=== PATIENT | female | born 1985 | race Caucasian/White ===

== ENCOUNTER → 2017-03-13 15:05 | Outpatient (CLI) | payer BC, SELFPAY ==
[2017-03-13 18:30] LABS: Progesterone Level 16.75 ng/mL (See Comment)
== END ==
PROVIDERS: Visit Provider Obstetrics & Gynecology
DX: N97.0 Female infertility associated with anovulation (principal); N92.5 Other specified irregular menstruation
CPT/HCPCS: 36415; 84144

== ENCOUNTER → 2017-04-10 15:10 | Outpatient (CLI) | payer BC, SELFPAY ==
[2017-04-10 16:31] LABS: Progesterone Level 16.13 ng/mL (See Comment)
== END ==
PROVIDERS: Visit Provider Obstetrics & Gynecology
DX: N97.0 Female infertility associated with anovulation (principal)
CPT/HCPCS: 36415; 84144

== ENCOUNTER → 2017-05-15 16:14 | Outpatient (CLI) | payer BC, SELFPAY ==
[2017-05-15 21:58] LABS: Chlamydia Trachomatis by PCR Negative (Negative); Neisserai gonorrhoeae by PCR Negative (Negative); Probe Check PASS; Sample Adequacy Control PASS; Specimen Processing Control PASS
[2017-05-20 13:10] LABS: HPV Reflexed? NOT INDICATED
== END ==
PROVIDERS: Visit Provider Obstetrics & Gynecology
DX: Z12.4 Encounter for screening for malignant neoplasm of cervix (principal); Z11.3 Encounter for screening for infections with a predominantly sexual mode of transmission
CPT/HCPCS: 87491; 87591; 88175; G0145

== ENCOUNTER → 2017-06-01 15:28 | Outpatient (CLI) | payer BC, SELFPAY ==
[2017-06-01 17:33] LABS: Absolute Lymphocyte Count 2.14 X10^3/ul (0.83-4.51); Absolute Neutrophil Count 4.7 X10^3/uL (2.0-7.7); Basophil# 0.03 X10^3/uL; Basophil% 0.4 % (0-1); Eosinophil# 0.04 X10^3/uL; Eosinophils% 0.5 % (0-5); Hematocrit 38.6 % (37-47); Hemoglobin 13.5 g/dl (12.0-15.0); Lymphocyte # 2.14 X10^3/ul (4.0); Lymphocyte % 28.5 % (19-41); Mean Corpuscular Hgb 31.5 pg (27.0-32.0); Mean Platelet Vol. 10.2 fl (6.2-12.0); Neutrophil # 4.68 X10^3/uL (2.7-7.7); Neutrophil % 62.3 % (47-70); POSITIVE COUNT NO; POSITIVE DIFFERENTIAL NO; POSITIVE MORPHOLOGY NO; Platelet Count 142 K/mm3 (150-450); RBC Distribution Width CV 12.9 % (11.6-14.6); RBC Distribution Width SD 41.6 fl (35.1-43.9); Red Blood Count 4.29 M/mm3 (4.2-5.4); White Blood Count 7.5 K/mm3 (4.4-11.0)
[2017-06-01 17:39] LABS: Color, Urine Yellow (Yellow); Glucose, Dipstick Normal (Normal); Ketone-Dipstick Negative (Negative); Leukocyte Esterase-Dipstick Negative /ul (Negative); Nitrite-Dipstick Negative (Negative); Occult Blood-Urine Negative /ul (Negative); Protein-Dipstick Negative (Negative); Urine Bilirubin Dipstick Negative (Negative); Urine Clarity Clear (Clear); Urine Urobilinogen Normal (Normal)
[2017-06-01 18:31] LABS: HIV - WCH Non-Reactive (Nonreactive); Rubella IgG 25.6 IU/mL
[2017-06-03 11:12] LABS: HEPATITIS B SURFACE AG Negative (Negative); Hep C Antibodies <0.1 s/co ratio (0.0-0.9)
[2017-06-05 02:33] LABS: Prenatal RPR NONREACTIVE (NONREACTIVE)
== END ==
PROVIDERS: Visit Provider Obstetrics & Gynecology
DX: Z34.81 Encounter for supervision of other normal pregnancy, first trimester (principal)
CPT/HCPCS: 36415; 81002; 84443; 85025; 86703; 86762; 86803; 87340

== ENCOUNTER → 2017-10-02 14:13 | Outpatient (CLI) | payer BC, SELFPAY ==
[2017-10-02 16:12] LABS: Hematocrit 38.3 % (37-47); Hemoglobin 12.7 g/dl (12.0-15.0); Mean Corp Hgb Conc 33.2 g/gl (32-36); Mean Corpuscular Hgb 31.3 pg (27.0-32.0); Mean Corpuscular Volume 94.3 fL (81-99); Mean Platelet Vol. 9.5 fl (6.2-12.0); Platelet Count 127 K/mm3 (150-450); RBC Distribution Width CV 13.3 % (11.6-14.6); Red Blood Count 4.06 M/mm3 (4.2-5.4); White Blood Count 8.4 K/mm3 (4.4-11.0)
[2017-10-02 16:13] LABS: Scan Indicated on CBC? Y/N NO
[2017-10-02 16:21] LABS: Glucose Challenge Gest 1H 50g 119 mg/dL (70-140)
== END ==
PROVIDERS: Visit Provider Obstetrics & Gynecology
DX: Z34.83 Encounter for supervision of other normal pregnancy, third trimester (principal)
CPT/HCPCS: 82950; 85027

== ENCOUNTER → 2017-11-10 16:28 | Outpatient (CLI) | payer BC, SELFPAY ==
[2017-11-10 17:37] LABS: Platelet Count 145 K/mm3 (150-450)
== END ==
PROVIDERS: Visit Provider Obstetrics & Gynecology
DX: O99.113 Other diseases of the blood and blood-forming organs and certain disorders involving the immune mechanism complicating pregnancy, third trimester (principal); Z3A.00 Weeks of gestation of pregnancy not specified; D69.6 Thrombocytopenia, unspecified
CPT/HCPCS: 36415; 85049

== ENCOUNTER → 2017-11-26 18:09 | Outpatient (CLI) | payer BC, SELFPAY ==
[2017-11-26 19:53] LABS: Group B Strep DNA By PCR POSITIVE (Negative); Probe Check PASS
== END ==
PROVIDERS: Referring Provider Obstetrics & Gynecology; Visit Provider Obstetrics & Gynecology
DX: Z36.85 Encounter for antenatal screening for Streptococcus B (principal)
CPT/HCPCS: 87653

== ENCOUNTER 2017-12-27 21:21 | Inpatient (IN) | payer BC, SELFPAY ==
[2017-12-27 22:00] VITALS: BMI 34.1
[2017-12-27] MEDS: Lactated Ringers 1,000 ML 50 ML IV (22:00)
[2017-12-27 22:18] LABS: Hemoglobin 12.5 g/dl (12.0-15.0); Mean Corp Hgb Conc 32.9 g/gl (32-36); Mean Corpuscular Hgb 30.6 pg (27.0-32.0); Mean Corpuscular Volume 93.1 fL (81-99); Mean Platelet Vol. 9.9 fl (6.2-12.0); Platelet Count 152 K/mm3 (150-450); RBC Distribution Width CV 13.4 % (11.6-14.6); RBC Distribution Width SD 45.3 fl (35.1-43.9); Red Blood Count 4.08 M/mm3 (4.2-5.4); Scan Indicated on CBC? Y/N NO; White Blood Count 12.1 K/mm3 (4.4-11.0)
[2017-12-27] MEDS: Oxytocin 30 units/NS 500 ml 30 UNITS/500 ML IV.SOLN IV (23:52)
[2017-12-28] MEDS: Oxytocin 30 units/NS 500 ml 30 UNITS/500 ML IV.SOLN 334 UNITS IV (02:45)
--- NOTE | 2017-12-28 02:53 | PCM.OB.VAG ---
- Problem List (1) 40 weeks gestation of Status: Acute (2) (spontaneous vaginal delivery) Status: Acute Vaginal Delivery Maternal Presentation: Spontaneous Rupture of Membranes Method of Induction: Pitocin Medical Reason for Induction: Premature Rupture of Membranes Amniotic Membrane Rupture Type: Spontaneous at home Rupture of Membrane time: 12/27/17 2015h Amniotic Fluid Description: Clear Final MARIA M: 12/25/17 Gestational age: 40 Weeks and 3 Days Date of Procedure: 12/28/17 Pre-Operative Diagnosis: 40 3/7wga Post-Operative Diagnosis: 40 3/7wga Surgery/ Procedure Performed: Spontaneous Vaginal Delivery Type of Anesthesia: None, - - Nitrous oxide Description of Procedure: Patient was FD/+3 station on my arrival. She pushed to deliver a vigorous female infant in direct OA through a nuchal cord. The nuchal was twice reduced. The infant was placed on the maternal abdomen and further attended by nursery personnel. The cord was doubly clamped and cut after 3 minutes. The placenta delivered spontaneously and appeared intact on inspection. A superficial first degree vaginal laceration was present and hemostatic. No sutures was required. Sponge counts correct x 2. Presentation: Vertex Placental Delivery Description: Spontaneous Placenta Disposition: [facility] Cord Vessel Description: 3 Vessels Nuchal Cord Compression: Without compression Cord Entanglement: Around neck x 2, loose Estimated Blood Loss: 250 ml Infant A gender: Female (1 minute): 8 (5 minute): 9 Episiotomy Description: None Laceration: None Medications given after delivery: IV Pitocin Complications: None
--- NOTE | 2017-12-28 02:59 | DCINST_ITS ---
Discharge Diet: No Restrictions Discharge Activity: Return to Normal Activity, May Shower, May Take a Tub Bath May resume sexual activity in: 4-6 weeks Lifting Restrictions: 20 lb Call your doctor if you observe: Fever of 101 or Higher, Inability to urinate, Inability to have a bowel movement, Using more than one pad per hour, Shortness of breath, Chest pain, Calf discomfort, Uncontrolled pain Additional Instructions: If you experience any of the following, contact your healthcare provider. * Bleeding that soaks a pad every hour for 2 hours * Fever 100.4 or higher * Unrelieved incision or abdominal pain * Swelling, redness, discharge or bleeding from your incision or episiotomy site * Your incision begins to separate * Problems urinating (including inability to urinate or burning while urinating). * Visual changes * Severe headache * Flu-like symptoms * Pain or redness in one of both of your breasts * Pain, warmth, tenderness or swelling in your legs, especially the calf area * Frequent nausea and vomiting * Symptoms of depression or anxiety If you experience any of the following, call 911 or go to the nearest Emergency Room. * Chest pain * Problems breathing * Seizure activity * Partial or complete paralysis of a body part, slurred speech, weakness or drooping of the face, or a sudden inability to walk or hold your balance Allergies/Adverse Reactions: Allergies No Known Allergies Allergy (Verified 11/29/14 09:04) Medications to take at Discharge Vits [Prenatabs FA ] 1 tablet PO DAILY 11/29/14 Ibuprofen 600 mg PO TID PRN #30 tablet 12/28/17 The following prescriptions were given: Ibuprofen 600 mg PO TID PRN #30 tablet PRN Reason: Pain Please Follow Up With: Kathryn Garcia MD When: 6 weeks Primary Care Physician: Kim Jackman MD [Primary Care Provider] - Test Results: Test results from this visit will be discussed in further detail at your follow- up appointment, if applicable.
[2017-12-28] MEDS: Ibuprofen 600 MG Tablet PO (03:36)
[2017-12-28] MEDS: Oxytocin 30 units/NS 500 ml 30 UNITS/500 ML IV.SOLN 167 UNITS IV (03:45)
[2017-12-28 07:49] VITALS: BP 111/72; PULSE 75; RESP 18; TEMP 37.1
[2017-12-28] MEDS: Prenatal Vits Tablet 1 TABLET PO (08:02)
[2017-12-28 11:28] VITALS: BP 126/69; PULSE 81; RESP 16; TEMP 37.1
[2017-12-28 15:26] VITALS: BP 112/69; PULSE 80; RESP 16; TEMP 36.9
[2017-12-28 20:55] VITALS: BP 130/61; PULSE 73; RESP 16; TEMP 36.9
[2017-12-29 03:38] VITALS: BP 122/76; PULSE 75; RESP 18; TEMP 36.6
[2017-12-29 08:00] VITALS: BP 114/72; PULSE 83; RESP 18; TEMP 36.6
--- NOTE | 2017-12-29 08:28 | PCM.PN.OB ---
Patient Problems: Active and Suspected Problems 40 weeks gestation of (Acute) (spontaneous vaginal delivery) (Acute) Subjective: PPD#1 GBS positive Doing well Minimal pain, bleeding. Nursing well. States baby may be dischg after 36 hr with close f/u outpt with Dr Jackman. Appt to be made - Physical Exam General: Alert, Oriented x3, Cooperative, No apparent distress HEENT: Atraumatic Neck: Supple Abdomen: Soft - Fundus firm NT at just inferior to umbilicus Psych/Mental Status: Normal Affect Vital Signs Temp Pulse Resp BP 98 F 75 18 122/76 H 12/29/17 03:38 12/29/17 03:38 12/29/17 03:38 12/29/17 03:38 Oxygen Delivery Method Room Air Weight: 90.265 kg Body Mass Index (BMI) 34.1 Medical Necessity - Tobacco Use Smoking Status: Never smoker Assessment/Plan All Active Problems 40 weeks gestation of (Acute) (spontaneous vaginal delivery) (Acute) PPD#1 Stable pp. Baby to be dischg per RN. Dischg home today. RTO in 6 wk for pp check.
[2017-12-29] MEDS: Prenatal Vits Tablet 1 TABLET PO (10:04)
[2017-12-29 14:00] VITALS: BP 124/68; PULSE 69; RESP 16; TEMP 36.3
== END 2017-12-29 14:00 | disposition home or self-care (01) | DRG 806 ==
PROVIDERS: Admitting Provider Obstetrics & Gynecology; Family Provider Family Medicine; PCP Family Medicine; Visit Provider Obstetrics & Gynecology
DX: O42.02 Full-term premature rupture of membranes, onset of labor within 24 hours of rupture (principal); O99.12 Other diseases of the blood and blood-forming organs and certain disorders involving the immune mechanism complicating childbirth; Z37.0 Single live birth; O70.0 First degree perineal laceration during delivery; O69.81X0 Labor and delivery complicated by cord around neck, without compression, not applicable or unspecified; O99.824 Streptococcus B carrier state complicating childbirth; D69.6 Thrombocytopenia, unspecified; Z3A.40 40 weeks gestation of pregnancy
CPT/HCPCS: 59025; 59050; 85027; 86850; 86900; 99218; J7120; G0378

== ENCOUNTER → 2018-10-15 13:19 | Outpatient (CLI) | payer BC, SELFPAY ==
[2018-10-15 15:51] LABS: Chlamydia Trachomatis by PCR Negative (Negative); Neisserai gonorrhoeae by PCR Negative (Negative); Probe Check PASS; Sample Adequacy Control PASS; Specimen Processing Control PASS
[2018-10-19 10:06] LABS: HPV Reflexed? NOT INDICATED
== END ==
PROVIDERS: Visit Provider Obstetrics & Gynecology
DX: Z12.4 Encounter for screening for malignant neoplasm of cervix (principal); Z11.3 Encounter for screening for infections with a predominantly sexual mode of transmission
CPT/HCPCS: 87491; 87591; 88175; G0145

== ENCOUNTER → 2018-11-08 15:19 | Outpatient (CLI) | payer BC, SELFPAY ==
[2018-11-08 15:56] LABS: Color, Urine Yellow (Yellow); Glucose, Dipstick Normal (Normal); Ketone-Dipstick 5 mg/dl (Negative); Leukocyte Esterase-Dipstick 100 /ul (Negative); Nitrite-Dipstick Negative (Negative); Occult Blood-Urine Negative /ul (Negative); Protein-Dipstick Negative (Negative); Urine Bilirubin Dipstick Negative (Negative); Urine Clarity Clear (Clear); Urine Urobilinogen 1 mg/dl (Normal); Urine pH 6.5 (5.0 - 8.0)
[2018-11-08 16:11] LABS: Absolute Lymphocyte Count 1.94 X10^3/uL (0.83-4.51); Absolute Neutrophil Count 4.3 X10^3/uL (2.0-7.7); Basophil# 0.03 X10^3/uL; Basophil% 0.4 % (0-1); Eosinophil# 0.03 X10^3/uL; Eosinophils% 0.4 % (0-5); Hematocrit 41.1 % (37-47); Hemoglobin 14.2 g/dL (12.0-15.0); Lymphocyte # 1.94 X10^3/ul (4.0); Lymphocyte % 28.7 % (19-41); Mean Corp Hgb Conc 34.5 g/dL (32-36); Mean Corpuscular Hgb 31.1 pg (27.0-32.0); Mean Corpuscular Volume 89.9 fL (81-99); Mean Platelet Vol. 9.8 fl (6.2-12.0); Monocyte# 0.42 X10^3/uL; Monocyte% 6.2 % (0-10); NRBC Flagged by Analyzer 0 % (0-5); Neutrophil # 4.31 X10^3/uL (2.7-7.7); Platelet Count 145 K/mm3 (150-450); RBC Distribution Width CV 12.6 % (11.6-14.6); RBC Distribution Width SD 40.8 fl (35.1-43.9); Red Blood Count 4.57 M/mm3 (4.2-5.4); White Blood Count 6.8 K/mm3 (4.4-11.0)
[2018-11-08 16:48] LABS: Thyroid Stim Hormone (TSH) 1.03 uIU/mL (0.358-3.74)
[2018-11-09 12:39] LABS: HIV - WCH Non-Reactive (Nonreactive); Hepatitis B Surface Antigen Non-Reactive (Nonreactive); Hepatitis C Antibody Non-Reactive (Nonreactive); Rubella IgG 16.4 IU/mL
[2018-11-12 02:41] LABS: Prenatal RPR NONREACTIVE (NONREACTIVE)
== END ==
PROVIDERS: Visit Provider Obstetrics & Gynecology
DX: Z34.81 Encounter for supervision of other normal pregnancy, first trimester (principal)
CPT/HCPCS: 36415; 81002; 84443; 85025; 86703; 86762; 86803; 87340

== ENCOUNTER → 2019-02-24 16:01 | Outpatient (CLI) | payer BC, SELFPAY ==
[2019-02-24 17:19] LABS: Hemoglobin 13.2 g/dL (12.0-15.0); Mean Corp Hgb Conc 33.8 g/dL (32-36); Mean Corpuscular Volume 94.4 fL (81-99); Mean Platelet Vol. 9.9 fl (6.2-12.0); Platelet Count 138 K/mm3 (150-450); RBC Distribution Width CV 12.8 % (11.6-14.6); RBC Distribution Width SD 44.2 fl (35.1-43.9); Red Blood Count 4.13 M/mm3 (4.2-5.4); White Blood Count 7.2 K/mm3 (4.4-11.0)
[2019-02-24 18:54] LABS: Glucose Challenge Gest 1H 50g 139 mg/dL (70-140)
== END ==
PROVIDERS: Visit Provider Obstetrics & Gynecology
DX: Z34.83 Encounter for supervision of other normal pregnancy, third trimester (principal)
CPT/HCPCS: 36415; 82950; 85027

== ENCOUNTER → 2019-03-25 15:33 | Outpatient (CLI) | payer BC, SELFPAY ==
[2019-03-25 17:17] LABS: Platelet Count 128 K/mm3 (150-450)
== END ==
PROVIDERS: Visit Provider Obstetrics & Gynecology
DX: O99.113 Other diseases of the blood and blood-forming organs and certain disorders involving the immune mechanism complicating pregnancy, third trimester (principal); D69.6 Thrombocytopenia, unspecified; Z3A.00 Weeks of gestation of pregnancy not specified
CPT/HCPCS: 36415; 85049

== ENCOUNTER → 2019-04-22 15:08 | Outpatient (CLI) | payer BC, SELFPAY ==
[2019-04-22 16:14] LABS: Platelet Count 131 K/mm3 (150-450)
== END ==
PROVIDERS: Visit Provider Obstetrics & Gynecology
DX: O99.113 Other diseases of the blood and blood-forming organs and certain disorders involving the immune mechanism complicating pregnancy, third trimester (principal); D69.6 Thrombocytopenia, unspecified; Z3A.00 Weeks of gestation of pregnancy not specified; Z36.85 Encounter for antenatal screening for Streptococcus B
CPT/HCPCS: 36415; 85049; 87077; 87081; 87186

== ENCOUNTER 2019-05-10 18:40 | Inpatient (IN) | payer BC, SELFPAY ==
--- NOTE | 2019-05-10 18:50 | HP.PCM_ITS ---
- Problem List (1) Group beta Strep positive Status: Acute (2) Encounter for induction of labor Status: Acute History Date of Admission: 05/10/19 Final MARIA M: 05/18/19 Final MARIA M Source: LMP Gestational age: 38 Weeks and 6 Days History of this : This is a 33 year-old, G [4], P [3], at 38.6 weeks gestational age. Allergies No Known Allergies Allergy (Verified 11/29/14 09:04) Home Medications: Home Medications Vits [Prenatabs FA ] 1 tablet PO DAILY 11/29/14 Smoking Status: Never smoker Alcohol: None Number of Fetus(es): 1 NST - FHR Rate Baby A Baseline: 145 Variability:: Moderate Accelerations:: 15 x 15 Decelerations:: None NST Reactive:: Yes FHR Category:: Category I Uterine Activity:: quiet History Past Pregnancies: Past Pregnancies Delivery Date Name GA/ Weeks Outcome Route Wt Infant Sex Labor Length Anesthesia Delivery Location Provider [facility] 04-10-11 40 live vag 7.7 F 9 epi [facility] 12-28-17 40 live vag 7.10 F 2 none [facility] 11-29-14 39 live vag 7.7 F 4 none [facility] Labs: Mom's Problem List Problem Status Onset Code Group beta Strep positive Acute B95.1 Encounter for induction of labor Acute Z34.90 Mom's Labs & Results 05/10/19 05/10/19 19:50 19:50 WBC 10.3 RBC 4.10 L Hgb 13.2 Hct 38.3 MCV 93.4 MCH 32.2 H MCHC 34.5 RDW Std Deviation 44.9 H RDW Coeff of Declan 13.5 Plt Count 151 MPV 9.6 Immature Gran % (Auto) 1.700 H Neut % (Auto) 66.8 Lymph % (Auto) 24.0 [place] % (Auto) 6.6 Eos % (Auto) 0.5 Baso % (Auto) 0.4 Absolute Neuts (auto) 6.9 Absolute Lymphs (auto) 2.46 Nucleated RBC % 0 Blood Type Pending Antibody Screen Pending Social History Alleged father Santana Hx Smoking No Smoking Status Never smoker Expected Infant Delivery Method: Spontaneous Vaginal Number of Visits: 10 Review of Systems Constitutional: Denies: Chills, Fever, Weight Change HEENT: Denies: Head Aches, Sinus Congestion, Sinus Drainage Cardiovascular: Denies: Chest Pain, Palpitations Respiratory: Denies: Cough, Shortness of breath at rest, Sputum production Gastrointestinal: Denies: Abdominal Pain, Nausea, Vomiting Genitourinary: Denies: Dysuria Musculoskeletal: Denies: Joint Pain, Joint Tenderness Skin: Denies: Rash, Wounds Neurological: Denies: Numbness, Tingling, Focal weakness Psychiatric: Denies: Anxiety, Depression, Homicidal Ideations, Suicidal Ideations Hematologic/ Lymphatic: Denies: Easy Bruising, Easy Bleeding Physical Exam General: Alert, Oriented x3, No apparent distress HEENT: Atraumatic, Normocephalic. Negative for: Thyromegaly, Lymphadenopathy Cardiovascular: Regular rate, Regular Rhythm Lungs: Clear to auscultation Abdomen: Bowel Sounds Present, Gravid Neurological: Deep Tendon Reflexes 2+/4 and Symmetrical, Neuro grossly intact [employer]: Normal external genitalia. Negative for: Vulvar lesions Estimated gestational size: Appropriate for gestational size Presentation: Cephalic Cervix Dilation (cm): 1 Station: -3 Effacement (%): 25 Assessment/Plan All Active Problems 40 weeks gestation of (Acute) (spontaneous vaginal delivery) (Acute) Group beta Strep positive (Acute) Encounter for induction of labor (Acute) A: This is a 33 year-old, G [4], P [3], at 38.6 weeks gestational age. Induction of labor for thrombocytopenia, GBS+ and hx of precipitous labors SVE 03/05/-3 Category I NST P: Cytotec induction for cervical ripening Followed by AROM and Pitocin as appropriate Plans natural labor Expect Essential Procedure Criteria Procedure Essential: Yes Criteria Note: On 04/26/2019 the [place] Department of Health ([facility]) Public Order signed by [facility] Director Kim Addison M.D., regarding the Management of Non- Essential Surgeries and Procedures for the purpose of preserving Personal Protective Equipment (PPE) and critical hospital capacity and resources within [place] went into effect as of 04/27/2019 at 5:00PM. According to the [facility] Public Order: This action will remain in full force and effect until the State of Emergency declared by the Governor no longer exists or the Director of the [facility] rescinds or modifies this Order.. This [facility] order stated all non-essential or elective surgeries and procedures that utilize PPE should be delayed unless there is undue risk to the current or future health of a patient. After reviewing the aforementioned [facility] Public Order and the patients clinical case, I have determined that the scheduled procedure meets the criteria to go forward. Risk to Patient if Procedure Delayed: Risk of rapidly worsening to severe symptoms - Hx of thrombocytopenia, GBS+, precipitous deliveries
[2019-05-10 19:31] VITALS: BMI 32.9
[2019-05-10 19:33] VITALS: TEMP 37.4
[2019-05-10 19:34] VITALS: BP 124/79; PULSE 92; O2SAT 97
[2019-05-10 20:05] LABS: Absolute Lymphocyte Count 2.46 X10^3/uL (0.83-4.51); Absolute Neutrophil Count 6.9 X10^3/uL (2.0-7.7); Basophil# 0.04 X10^3/uL; Basophil% 0.4 % (0-1); Eosinophil# 0.05 X10^3/uL; Eosinophils% 0.5 % (0-5); Hematocrit 38.3 % (37-47); Hemoglobin 13.2 g/dL (12.0-15.0); Lymphocyte # 2.46 X10^3/ul (4.0); Mean Corp Hgb Conc 34.5 g/dL (32-36); Mean Corpuscular Hgb 32.2 pg (27.0-32.0); Mean Corpuscular Volume 93.4 fL (81-99); Mean Platelet Vol. 9.6 fl (6.2-12.0); Monocyte# 0.68 X10^3/uL; Monocyte% 6.6 % (0-10); NRBC Flagged by Analyzer 0 % (0-5); Neutrophil # 6.86 X10^3/uL (2.7-7.7); Neutrophil % 66.8 % (47-70); Platelet Count 151 K/mm3 (150-450); RBC Distribution Width CV 13.5 % (11.6-14.6); RBC Distribution Width SD 44.9 fl (35.1-43.9); White Blood Count 10.3 K/mm3 (4.4-11.0)
[2019-05-10] MEDS: miSOPROStol 25 MCG TABLET VAGINAL (20:34)
[2019-05-10 20:38] VITALS: BP 126/74; PULSE 81; TEMP 37.4; O2SAT 97
[2019-05-10 21:34] VITALS: BP 113/71; PULSE 93; O2SAT 97
[2019-05-10 21:35] VITALS: TEMP 37.3
[2019-05-10] MEDS: Lactated Ringers 1,000 ML 50 ML IV (21:40)
[2019-05-10 22:03] VITALS: PULSE 87; O2SAT 98
[2019-05-11] VITALS (21 sets, daily range): BP systolic 108–127; BP diastolic 51–86; PULSE 67–123; RESP 16–18; TEMP 36.6–37.7; O2SAT 96–98
[2019-05-11] MEDS: miSOPROStol 50 MCG TABLET VAGINAL (00:45)
[2019-05-11] MEDS: fentaNYL 100 MCG/2 ML Ampul IV (06:21)
[2019-05-11] MEDS: Lactated Ringers 500 ML 999 ML IV (06:37)
--- NOTE | 2019-05-11 08:10 | PN.OBGYN_ITS ---
Patient Problems: Active and Suspected Problems Group beta Strep positive (Acute) Encounter for induction of labor (Acute) Subjective: Contractions are a lot stronger now, but not super close. 6/10 pain. Objective: VSS SVE 5.5/80/-1 soft anterior AROM clear fluid FHR baseline 145, + accels, -decels, moderate variability UC Q2-4min Breathing through contractions with eyes closed - Physical Exam Vitals/I&O's: Vital Signs Temp Pulse BP Pulse Ox 98.4 F 96 122/86 H 96 05/11/19 07:14 05/11/19 07:14 05/11/19 07:14 05/11/19 06:24 Weight: 87.09 kg Body Mass Index (BMI) 32.9 Intake and Output for Last 24 Hours 05/09/19 05/10/19 05/11/19 23:59 23:59 23:59 Intake Total 105 / 105 968.33 / 968.33 Output Total 450 / 450 Balance 105 / 105 518.33 / 518.33 General: Alert, Oriented x3, Cooperative HEENT: Atraumatic, PERRLA, EOMI, Normocephalic Neck: Supple, No JVD, Negative Carotid Bruits Lungs: Clear to auscultation, Normal air movement Cardiovascular: Regular rate, No murmurs Abdomen: Bowel Sounds Present, Soft, Non Tender Extremities: No edema, Capillary Refill Less than 3 Seconds Skin: No rashes, No breakdown Musculoskeletal: No Tenderness to Palpation of Joints or Extremities Neurological: Cranial nerves II-XII grossly intact Psych/Mental Status: Normal Affect, Appropriate Laboratory Results 05/10/19 19:50: WBC 10.3, RBC 4.10 L, Hgb 13.2, Hct 38.3, MCV 93.4, MCH 32.2 H, MCHC 34.5, RDW Std Deviation 44.9 H, RDW Coeff of Declan 13.5, Plt Count 151, MPV 9.6, Immature Gran % (Auto) 1.700 H, Neut % (Auto) 66.8, Lymph % (Auto) 24.0, [place] % (Auto) 6.6, Eos % (Auto) 0.5, Baso % (Auto) 0.4, Absolute Neuts (auto) 6.9, Absolute Lymphs (auto) 2.46, Nucleated RBC % 0 05/10/19 19:50: Blood Type A POSITIVE, Antibody Screen NEGATIVE Current Medications Acetaminophen (Tylenol) 325 - 650 mg PO Q4H PRN PRN PRN Reason: Pain Score 1-3/10 Al Hydroxide/Mg Hydroxide (Mylanta Ii) 15 - 30 ml PO Q4H PRN PRN PRN Reason: INDIGESTION Citric Acid/Sodium Citrate (Bicitra) 30 ml PO X1 PRN PRN Reason: Section Fentanyl Citrate (Sublimaze (100mcg Ampule)) 25 - 50 mcg IV Q2H PRN PRN PRN Reason: Pain Score 4-10/10 Last Admin: 05/11/19 06:21 Dose: 50 mcg Documented by: Lactated Ringer's () 500 mls @ 999 mls/hr IV .Q31M PRN PRN Reason: Epidural Lactated Ringer's () 500 mls @ 999 mls/hr IV .Q31M PRN PRN Reason: Corrective Measures Last Infusion: 05/11/19 07:08 Dose: Infused Documented by: Lactated Ringer's () 1,000 mls @ 50 mls/hr IV .Q20H [facility] Last Infusion: 05/11/19 07:08 Dose: 50 mls/hr Documented by: Penicillin G Potassium/Dextrose (Penicillin G Potassium) 3 mu in 50 mls @ 100 mls/hr IV Q4H [facility] Last Infusion: 05/11/19 05:10 Dose: Infused Documented by: Ondansetron HCl (Zofran) 4 mg IV Q4H PRN PRN PRN Reason: NAUSEA Prochlorperazine Edisylate (Compazine Iv) 10 mg IV Q6H PRN PRN PRN Reason: NAUSEA Sodium Chloride () 10 - 40 ml IV X1 PRN PRN Reason: SALINE FLUSH Medical Necessity - Tobacco Use Smoking Status: Never smoker Assessment/Plan All Active Problems 40 weeks gestation of (Acute) (spontaneous vaginal delivery) (Acute) Group beta Strep positive (Acute) Encounter for induction of labor (Acute) A: at 39.0 weeks here for IOL for thrombocytopenia, +GBS, and precipitous labors FHR Category I NST Active labor AROM P: AROM with clear fluid. Allow to naturally labor SVE in 4 hours and Pitocin if needed Plans no epidural, but IV pain medication Expect
[2019-05-11] MEDS: Oxytocin 30 units/NS 500 ml 30 UNITS/500 ML IV.SOLN 334 UNITS IV (09:11)
--- NOTE | 2019-05-11 09:24 | PCM.OPRPT ---
Problem List (1) Group beta Strep positive Status: Acute (2) Encounter for induction of labor Status: Acute Vaginal Delivery Maternal Presentation: Medically Indicated Induction Method of Induction: Amniotomy, Cytotec Medical Reason for Induction: Maternal Medical Condition: list: - thrombocytopenia, GBS+ with precipitous labors Amniotic Membrane Rupture Type: Artificial Rupture of Membrane time: 744 Amniotic Fluid Description: Clear Final MARIA M: 05/18/19 Final MARIA M Source: [place] <20 weeks Gestational age: 39 Weeks and 0 Days Date of Procedure: 05/11/19 Pre-Operative Diagnosis: Labor Post-Operative Diagnosis: S/P Surgery/ Procedure Performed: Spontaneous Vaginal Delivery Type of Anesthesia: None Description of Procedure: Patient had spontaneous urge to push and complete +1. Patient pushed once to deliver head in OA to MARLY with nuchal x1, unable to reduce at perineum. Body delivered immediately following head with second push. Loose nuchal removed by CNM and the female was placed on the maternal abdomen and further attended by nursery personnel with bulb suction and stimulation. The cord was doubly clamped then cut by FOB with CNM supervision at approximately 1 minute of life. IV Pitocin started per protocol. First degree perineal laceration noted, repaired with single stitch using a 3.0 single rapide. Good hemostasis noted. With gentle cord traction spontaneous delivery of placenta. Fundal massage given, firm and midline. On inspection placenta appeared to be fully intact with a three vessel cord. Multiple bilateral labial skid mont[place]ongo noted. EBL 50. Sponge and needle count correct x2. Apgars 9/10. Presentation: Vertex, MARLY Placental Delivery Description: Spontaneous Placenta Disposition: [facility] Cord Entanglement: Around neck x 1, loose A gender: Female (1 minute): 9 (5 minute): 10 Episiotomy Description: None Laceration: 1st degree - perineal Medications given after delivery: IV Pitocin
--- NOTE | 2019-05-11 09:29 | DCINST_ITS ---
Discharge Diet: No Restrictions Discharge Activity: Return to Normal Activity, May not drive while taking narcotic pain medications., May Shower May resume sexual activity in: 4-6 weeks Additional Activity Instructions:: Nothing in the vagina for 4-6 weeks. You may return to work/school in 6 weeks. Call your doctor if your incision/area has: Continuous Slow Oozing, Sudden Increased Bleeding, Increased Pain/ Swelling, Increased Redness, Foul Smelling Discharge Additional Instructions: If you experience any of the following, contact your healthcare provider. * Bleeding that soaks a pad every hour for 2 hours * Fever 100.4 or higher * Unrelieved incision or abdominal pain * Swelling, redness, discharge or bleeding from your incision or episiotomy site * Your incision begins to separate * Problems urinating (including inability to urinate or burning while urinating). * Visual changes * Severe headache * Flu-like symptoms * Pain or redness in one of both of your breasts * Pain, warmth, tenderness or swelling in your legs, especially the calf area * Frequent nausea and vomiting * Symptoms of depression or anxiety If you experience any of the following, call 911 or go to the nearest Emergency Room. * Chest pain * Problems breathing * Seizure activity * Partial or complete paralysis of a body part, slurred speech, weakness or drooping of the face, or a sudden inability to walk or hold your balance Allergies/Adverse Reactions: Allergies No Known Allergies Allergy (Verified 11/29/14 09:04) Medications to take at Discharge Vits [Prenatabs FA ] 1 tablet PO DAILY 11/29/14 Please Follow Up With: Liliya Burris CNM When: Call to make an appointment with your CNM in 6 weeks. If you have signs of depression, call immediately. Primary Care Physician: Kim Jackman MD [Primary Care Provider] - Test Results: Test results from this visit will be discussed in further detail at your follow- up appointment, if applicable.
--- NOTE | 2019-05-11 15:30 | NURSING ---
Received report from Maggie Saha RN. Yumi Young and myself will assume care of patient at this time.
[2019-05-11] MEDS: Ibuprofen 600 MG Tablet PO (15:52)
[2019-05-12 00:05] VITALS: BP 109/62; PULSE 77; TEMP 36.9
[2019-05-12 00:12] VITALS: BP 109/62; PULSE 77; RESP 16; TEMP 36.9
[2019-05-12 03:24] VITALS: BP 120/71; PULSE 71; TEMP 36.5
[2019-05-12] MEDS: Ibuprofen 600 MG Tablet PO ×2 (06:24)
[2019-05-12 08:00] VITALS: BP 116/66; PULSE 71; RESP 15; TEMP 36.9
[2019-05-12 08:06] VITALS: BP 116/66; PULSE 71; TEMP 36.8; TEMP 36.9
--- NOTE | 2019-05-12 08:30 | PCM.PN.OB ---
Subjective: Feeling really good. Denies pain, heavy bleeding or concerns. Objective: VSS. Fundus firm, midline, u/1. Lochia rubra moderate. - Physical Exam Vitals/I&O's: Vital Signs Temp Pulse Resp BP Pulse Ox 98.2 F 71 15 116/66 98 05/12/19 08:06 05/12/19 08:06 05/12/19 08:00 05/12/19 08:06 05/11/19 19:46 Oxygen Delivery Method Room Air Weight: 87.09 kg Body Mass Index (BMI) 32.9 Intake and Output for Last 24 Hours 05/10/19 05/11/19 05/12/19 23:59 23:59 23:59 Intake Total 105 / 105 1620.00 / 1620.00 Output Total 800 / 800 Balance 105 / 105 820.00 / 820.00 General: Alert, Oriented x3, Cooperative HEENT: Atraumatic, PERRLA, EOMI, Normocephalic Neck: Supple, No JVD, Negative Carotid Bruits Lungs: Clear to auscultation, Normal air movement Cardiovascular: Regular rate, No murmurs Abdomen: Bowel Sounds Present, Soft, Non Tender, Passing Flatus Extremities: No edema, Capillary Refill Less than 3 Seconds Skin: No rashes, No breakdown Musculoskeletal: No Tenderness to Palpation of Joints or Extremities Neurological: Cranial nerves II-XII grossly intact Psych/Mental Status: Normal Affect, Appropriate Medical Necessity - Tobacco Use Smoking Status: Never smoker Assessment/Plan All Active Problems 40 weeks gestation of (Acute) (spontaneous vaginal delivery) (Acute) Group beta Strep positive (Acute) Encounter for induction of labor (Acute) A: S/P vaginal delivery day #1 daughter Normal involution and course P: Continue Motrin and Tylenol at home as needed for cramps To call for 6 week PP follow up or call immediately with any s/s of PPD May discharge today after 24H course
== END 2019-05-12 11:00 | disposition home or self-care (01) | DRG 807 ==
PROVIDERS: Admitting Provider Obstetrics & Gynecology; PCP Family Medicine; Referring Provider Obstetrics & Gynecology; Visit Provider Obstetrics & Gynecology
DX: O99.12 Other diseases of the blood and blood-forming organs and certain disorders involving the immune mechanism complicating childbirth (principal); Z37.0 Single live birth; D69.6 Thrombocytopenia, unspecified; O99.824 Streptococcus B carrier state complicating childbirth; O70.0 First degree perineal laceration during delivery; O71.82 Other specified trauma to perineum and vulva; O69.81X0 Labor and delivery complicated by cord around neck, without compression, not applicable or unspecified; Z3A.39 39 weeks gestation of pregnancy; Z87.59 Personal history of other complications of pregnancy, childbirth and the puerperium
CPT/HCPCS: 59025; 59050; 85025; 86850; 86900; 86901; 99218; J7120; G0378

== ENCOUNTER → 2023-10-28 | Outpatient (CLI) | payer BC, SELFPAY ==
[2023-10-28 11:00] LABS: ALB/GLOB Ratio 0.9 RATIO (0.9-2.4); AST(SGOT) 21 U/L (15-37); Alanine Aminotransfer ALT/SGPT 33 U/L (13-56); Albumin, Serum 3.7 g/dL (3.2-5.0); Alkaline Phosphatase 90 U/L (45-117); Anion Gap 4 (5-15); BUN 17 mg/dL (7-18); BUN/Creat Ratio 21.8 RATIO (10-20); Calcium,Total 9.4 mg/dL (8.5-10.1); Chloride 107 mmol/L (98-107); Creatinine, Serum 0.78 mg/dL (0.55-1.02); EST Glomerular Filtration Rate 88 mL/min (>60); Est Glom Filt Rate - Afr Amer 107 mL/min (>60); Globulin 4.2 g/dL (2.2-4.2); Glucose 94 mg/dL (74-106); Potassium 3.9 mmol/L (3.5-5.1); Protein, Total 7.9 g/dL (6.4-8.2); Sodium Level 138 mmol/L (136-145); T4 Free Direct 0.94 ng/dL (0.76-1.46)
== END | disposition home or self-care (01) ==
LOC: LAB 09:21
PROVIDERS: PCP Family Medicine; Referring Provider Nurse Practitioner Family; Visit Provider Nurse Practitioner Family
DX: Z13.29 Encounter for screening for other suspected endocrine disorder (principal)
CPT/HCPCS: 36415; 80053; 84439; 84443